=== PATIENT | female | born 1945 | race African-American/Black ===

== ENCOUNTER 2019-04-30 11:27 | Observation (INO) ==
[2019-04-30] MEDS ORDERED: SODIUM CHLORIDE 0.9% 1,000 ML IV STA ×2 (12:00→13:35)
[2019-04-30 12:38] LABS: Basophils # 0.1 10*3/uL (0.0-0.2); Basophils % 0.4 % (0.0-0.8); Hematocrit 42.2 VOL% (35.7-47.0); Hemoglobin 13.6 GM/DL (12.0-16.0); Immature Granulocytes % 1.2 %; Lymphocytes # 1.2 10*3/uL (1.4-4.0); Lymphocytes % 4.8 % (21.3-54.2); Mean Corpuscular HGB Conc 32.2 GM/DL (32-36); Mean Corpuscular Volume 105.5 FL (87-102); Mean Platelet Volume 11.6 FL (9.6-12.0); Monocytes % 8.3 % (1.7-12.7); Neutrophils % 85.3 % (38.7-73.9); Platelet Count 281 T/CUMM (130-400); Red Cell Distribution Width 14.2 % (9.3-17.3); White Blood Count 24.7 T/CUMM (4-12)
[2019-04-30 13:05] LABS: Lymphocytes 4 % (20-55); Macrocytosis Slight; Nucleated Red Blood Cells 2 (0-5); Platelet Estimate Normal; Polychromasia Few; Segmented Neutrophils 92 % (50-85); Total Cells Counted 100
[2019-04-30 13:07] LABS: Albumin 3.2 G/DL (3.4-5.0); Bilirubin,Total 1.1 MG/DL (0.2-1.0); Calcium 10.5 MG/DL (8.5-10.1); Osmolality,Calculated 345.3 MOS/KG (273-304); Total Protein 7.5 G/DL (6.4-8.3)
[2019-04-30] MEDS ORDERED: LORazepam 2 MG/1 ML VIAL IV PRN (15:07)
[2019-04-30] MEDS ORDERED: cefTRIAXone 1,000 MG in SYRINGE 1 EACH IV STA (15:23)
[2019-04-30] MEDS ORDERED: fentaNYL 25 MCG/HR PATCH TRANSDERM SCH (16:00)
[2019-04-30] MEDS: DEXTROSE 5% NACL 0.22% 1,000 ML IV SCH (16:46)
[2019-05-01] MEDS: DEXTROSE 5% NACL 0.22% 1,000 ML IV SCH (03:14)
[2019-05-01 08:08] VITALS: BP 86/49
== END 2019-05-01 14:50 | disposition hospice, home (50) ==
LOC: EDBD → EDUNIT# → N.EDINP 11:27 → N.ED 11:27 → N.4E 15:32
PROVIDERS: ADMIT Internal Medicine; ATTEND Internal Medicine